=== PATIENT | male | born 1995 | race Caucasian/White ===

== ENCOUNTER 2019-10-03 00:33 | Emergency (ER) | payer OTHER ==
[~2019-10-03] VITALS: Ht 193 cm; Wt 79.4 kg
[~2019-10-03 00:33] MED LIST: ACYCLOVIR 800800 MG PO; ARTIFICIAL TEA3.5 G2 OP; ARTIFICIAL TEAR15 M9 OP; CEFDINIR300 MG PO; IBUPROFEN 600600 M1 PO; NOHOMEMEDICATIONS; PHENERGAN-CODE120 ML PO; PREDNISONE 20 M20 MG PO; ULTRAM 50MG TAB50 MG PO; VENTOLIN17 GM INH; ZPAK PO
[2019-10-03 01:03] LABS: ABSOLUTE EOSINOPHILS 0.3 thou/uL (0.0-0.7); ABSOLUTE LYMPHOCYTES 1.4 thou/uL (0.8-5.3); ABSOLUTE MONOCYTES 0.5 thou/uL (0.0-1.2); BASOPHILS 0.6 %; EOSINOPHILS 3.8 %; HEMATOCRIT 43.4 % (42.0-52.0); LYMPHOCYTES 19.4 %; MCH 32.9 pg (26.0-34.0); MCHC 34.6 g/dL (28.0-37.0); MCV 94.9 fL (80.0-100.0); MONOCYTES 6.6 %; MPV 7.3 fl. (7.2-11.1); NUCLEATED RBCS 0 /100WBC; PLATELET COUNT* 268 thou/uL (150-400); POLYS 69.6 %; RBC 4.57 mil/uL (4.50-6.00); WBC 7.2 thou/uL (4.0-11.0)
[2019-10-03 01:09] LABS: CALCIUM 8.6 mg/dL (8.5-10.1); CREATININE 1.1 mg/dL (0.6-1.3); POTASSIUM 3.7 mmol/L (3.5-5.1)
[2019-10-03 01:19] LABS: ALBUMIN 3.8 g/dL (3.4-5.0); TOTAL BILIRUBIN 0.3 mg/dL (<0.1-1.0); TOTAL PROTEIN 7.7 g/dL (6.4-8.2)
[2019-10-03 01:20] LABS: ALCOHOL 215 mg/dL (<10); SALICYLATE < 2.8 mg/dL (2.8-20.0)
[2019-10-03 01:22] LABS: ACETAMINOPHEN < 2 ug/mL (10-30)
[2019-10-03 02:33] LABS: URINE BILIRUBIN NEGATIVE (Negative); URINE BLOOD 1+ (Negative); URINE CLARITY CLEAR; URINE COLOR YELLOW; URINE GLUCOSE-RANDOM NEGATIVE (Negative); URINE KETONES NEGATIVE (Negative); URINE LEUKOCYTES-REFLEX NEGATIVE (Negative); URINE NITRITE-REFLEX NEGATIVE (Negative); URINE PROTEIN TRACE (Negative); URINE UROBILINOGEN 0.2 E.U./dl (0.2-1.0)
[2019-10-03 02:40] LABS: AMP/METHAMP Negative (Negative); BARBITURATES Negative (Negative); BENZODIAZEPINES POSITIVE (Negative); COCAINE Negative (Negative); METHADONE Negative (Negative); OPIATES Negative (Negative); PCP Negative (Negative); THC Negative (Negative)
[2019-10-03 02:57] LABS: BACTERIA-REFLEX >30 Many /HPF (None Seen); CRYSTALS None Seen /LPF (None Seen); FINE GRANULAR CASTS 0-3 Few /LPF (None Seen); HYALINE CASTS 0-3 Few /LPF (None Seen); MUCUS >6 Heavy strn/LPF (None Seen); SQUAMOUS 0-3 Few /LPF (0-3); URINE RBC 3-10 Few /HPF (0-2); URINE WBC-REFLEX None Seen /HPF (0-5)
[2019-10-03 03:18] VITALS: BP 158/97
== END 2019-10-03 03:24 | disposition home or self-care (01) ==
LOC: M.ERS 00:33
PROVIDERS: Emergency Medicine
DX: S61.236A Puncture wound without foreign body of right little finger without damage to nail, initial encounter (principal); S00.83XA Contusion of other part of head, initial encounter; S60.511A Abrasion of right hand, initial encounter; S20.419A Abrasion of unspecified back wall of thorax, initial encounter; R45.851 Suicidal ideations; J45.909 Unspecified asthma, uncomplicated; F17.210 Nicotine dependence, cigarettes, uncomplicated; Z88.1 Allergy status to other antibiotic agents; W22.01XA Walked into wall, initial encounter; Y93.89 Activity, other specified; Y92.89 Other specified places as the place of occurrence of the external cause; Y99.8 Other external cause status